=== PATIENT | male | born 1990 | race Caucasian/White ===

== ENCOUNTER 2020-01-16 21:28 | Emergency (ER) | payer SELFPAY ==
[~2020-01-16] VITALS: Ht 160 cm; Wt 70.3 kg
--- NOTE | 2020-01-16 21:28 | NUR ---
PT BIBA BLS. TAKEN TO BED 6. [place] [employer] AT BEDSIDE.
[2020-01-16 21:32] VITALS: BP 150/98
--- NOTE | 2020-01-16 21:44 | NUR ---
Dr. Valle examining patient at bedside.
[2020-01-16 22:07] VITALS: BP 150/98
--- NOTE | 2020-01-16 22:07 | NUR ---
PATIENT BIB [facility]. PATIENT EXAMINED BY DR. SOSA. PATIENT MEDICALLY CLEARED AND RELEASED IN CUSTODY IN STABLE CONDITION. ORIGINAL PRE-BOOK FORM GIVEN TO OFFICER SMITA.
== END 2020-01-16 22:07 ==
LOC: MED 21:28
DX: F10.10 Alcohol abuse, uncomplicated (principal); Z02.89 Encounter for other administrative examinations; V89.2XXA Person injured in unspecified motor-vehicle accident, traffic, initial encounter; Y93.89 Activity, other specified; Y92.89 Other specified places as the place of occurrence of the external cause; Y99.8 Other external cause status
CPT/HCPCS: 99283